=== PATIENT | female | born 1980 | race Caucasian/White ===

== ENCOUNTER 2022-07-26 18:03 | Emergency (ER) | payer OTHER ==
[2022-07-26 18:15] VITALS: BP 115/77; PULSE 94; RESP 18; TEMP 98; BMI 28.3
[2022-07-26] MEDS ORDERED: SODIUM CHLORIDE 0.9% 500 ML INFUS.BAG IV ONE (19:46)
[2022-07-26 22:03] LABS: BASO % 0.5 % (0-2.0); EOS % 0.1 % (0-4.5); HEMATOCRIT 47.4 % (32.4-45.2); HEMOGLOBIN 15.4 GM/dL (10.7-15.3); MCH 29.5 pg (25.7-33.7); MCHC 32.5 g/dl (32.0-36.0); MEAN CELL VOLUME 90.9 fl (80-96); MEAN PLT VOLUME 10.4 fl (7.5-11.1); MONO % 5.7 % (3.8-10.2); NEUT % 76.7 % (42.8-82.8); PLATELET COUNT 126 10^3/uL (134-434); RBC 5.22 M/mm3 (3.60-5.2); RDW 13.6 % (11.6-15.6); WHITE BLOOD COUNT 6.8 K/mm3 (4.0-10.0)
[2022-07-26 22:06] LABS: INR 1.21 (0.83-1.09)
[2022-07-26 22:11] LABS: CHLORIDE 98 mmol/L (98-107); SODIUM 134 mmol/L (136-145)
[2022-07-26 22:13] LABS: ALBUMIN 3.7 g/dl (3.4-5.0); ANION GAP 12 MMOL/L (8-16); BLOOD UREA NITROGEN 11.7 mg/dL (7-18); CO2 24 mmol/L (21-32); GLUCOSE,RANDOM 189 mg/dL (74-106)
[2022-07-26 22:17] LABS: CREATININE 0.8 mg/dL (0.55-1.3); SGOT/AST 34 U/L (15-37); SGPT/ALT 23 U/L (13-61)
[2022-07-26 22:18] LABS: TOT PROT 7.2 g/dl (6.4-8.2)
[2022-07-26 22:19] LABS: ALK PHOS 61 U/L (45-117); BILIRUBIN,TOTAL 0.4 mg/dL (0.2-1)
[2022-07-26] MEDS ORDERED: KCL 10 MEQ IVPB 10 MEQ/100 ML INFUS.BAG IVPB SCH (22:30)
[2022-07-26] MEDS ORDERED: SODIUM CHLORIDE 1,000 ML IV STA ×2 (22:41→23:10)
[2022-07-26] MEDS ORDERED: KCL 10 MEQ IVPB 30 MEQ/300 ML INFUS.BAG IVPB ONE (23:07)
[2022-07-26] MEDS ORDERED: POTASSIUM CHLORIDE TABS 20 MEQ TABLET.ER (FP) PO ONE ×2 (23:09→23:24)
== END 2022-07-27 01:15 | disposition home or self-care (01) ==
LOC: JER 18:03
PROC: 3E0337Z Introduction of Electrolytic and Water Balance Substance into Peripheral Vein, Percutaneous Approach (ICD-10-PCS; principal; 2022-07-26)
DX: U07.1 COVID-19 (principal); E86.0 Dehydration; R19.7 Diarrhea, unspecified
CPT/HCPCS: 0241U-QW; 36415; 70450-TC; 72125-TC; 80053; 84702; 85025; 85610; 93005; 93010; 99285-25